=== PATIENT | female | born 1950 | race African-American/Black ===

== ENCOUNTER 2016-11-24 18:22 | Inpatient (IN) | payer MEDICARE ==
--- NOTE | ~2016-11-24 | HP ---
History And Physical [facility] [address] [facility]. [address] NAME: DONNA ZHOU : 50 STATUS : ADM IN [facility]#: [id number] AGE: 66 ADM/REG DATE : 11/24/16 MR#: [id number] REPORT SERV DATE: 11/24/16 DICTATED BY: BRYANT LOTT DATE: 11/24/16 REPORT STATUS : Draft TRANSCRIBED BY: MODL DATE: 11/24/16 DATE OF ADMISSION: 11/24/2016 CHIEF COMPLAINT: Vomiting blood. HISTORY OF PRESENT ILLNESS: This is a 66-year-old -[place] female, who presents to the emergency room at [facility] with the above-mentioned complaint. History is obtained from the patient, her son who is at bedside, and reviewing data available on the [employer] system as well. Mrs. Zhou is a 66-year-old lady, who was in her usual state of health until about two days ago when she started having vomiting. She says she vomited numerous times during the course of the day, on both days, and this was not bloody. She had severe nausea and vomiting and was unable to keep down anything including her blood pressure and other medications. Subsequently today, she saw dark blood in the vomitus as well. She immediately decided to come to the emergency room to be evaluated. In the emergency room, she continued to have bloody emesis, which was dark in color, but not dark coffee-grounds. She was otherwise in no discomfort. The ER provider had called Dr. Henry, who wanted the patient admitted in the IMCU under the Hospitalist Service. At the time of my evaluation, she denied any chest pain, palpitations, or orthopnea. She had no cough, hemoptysis, night sweats, or weight loss. She has not had any recent falls or loss of consciousness. No history of fevers or chills. She did have some epigastric tenderness, but that was after she has started vomiting. No history of hematochezia or hematuria. No other history of recent travel or exposures. PAST MEDICAL HISTORY: Significant for history of hypertension, ulcerative esophagitis, multiple myeloma, status post stem cell transplant in [address] Jason Westfall. She has chronic anemia, stage III to IV chronic kidney disease, history of systolic congestive heart failure, essential hypertension, chronic diarrhea. She has diabetes mellitus, type 2 and nonischemic cardiomyopathy as well. She also had right great toe amputation for osteomyelitis. SOCIAL HISTORY: She does not smoke, drink, or use recreational drugs. FAMILY HISTORY: Noncontributory. MEDICATIONS: Her medication at home were reviewed by me in the chart today and reordered by me. REVIEW OF SYSTEMS: As in history of present illness. All other systems were reviewed in detail and quite unremarkable. PHYSICAL EXAMINATION: History And Physical [address] [address] NAME: DONNA ZHOU : 50 STATUS : ADM IN PAT#: [id number] AGE: 66 ADM/REG DATE : 11/24/16 MR#: [id number] REPORT SERV DATE: 11/24/16 DICTATED BY: BRYANT LOTT DATE: 11/24/16 REPORT STATUS : Draft TRANSCRIBED BY: TARA DATE: 11/24/16 GENERAL: This is a pleasant 66-year-old, not in any acute distress. HEENT: Her head appears to be atraumatic, normocephalic. She is alert, awake, oriented to time, place, and person. Pupils are equal, reacting to light and accommodating. External ocular muscles are intact. Membranes are moist and pink. Sclerae are nonicteric. NECK: Supple with no jugular venous distention, lymphadenopathy, or thyromegaly. LUNGS: Clear to auscultation with no wheezes, rubs, or crackles. HEART: Heart sounds were regular with no murmurs, rubs, or gallops. ABDOMEN: Soft. There is no guarding or rigidity. There is no organomegaly. Bowel sounds are present. EXTREMITIES: No cyanosis, clubbing, or edema. NEUROLOGIC: Grossly intact. No focal sensory or motor deficits. She was able to move all four extremities. Higher functions appeared intact. VITAL SIGNS: Today showed normal temperature, heart rate of 103, respirations were 18 a minute, blood pressure was 221/129 upon arrival. Subsequently, her systolic pressures that come down to 166. Oxygen saturations were 100% breathing 2 L of oxygen via nasal cannula. LABORATORY DATA: Reviewed on the [employer] system showed a sodium of 142, potassium 3.8, chloride 101, CO2 of 27, BUN was 62 with a creatinine of 6.05 today. This had gone up from 10/23/2016, it was 5.31. Blood glucose was 212. AST, ALT, and alkaline phosphatase were within normal limits. CBC showed a white blood cell count of 11,500, hemoglobin was 12.2, hematocrit 36.3, and platelet count was 205,000. Her prothrombin time was 13.7 today with an INR of 1.1. There is no imaging done in the ER today. A 12-lead EKG done in the emergency room was reviewed and interpreted by me. There is sinus tachycardia with a rate of [address] elevations. There is evidence of left ventricular hypertrophy. IMPRESSION: 1. Acute gastrointestinal bleed. 2. Hypertensive urgency. 3. Hematemesis. 4. History of ulcerative esophagitis. 5. Acute on chronic kidney disease, stage III to IV. 6. History of multiple myeloma, status post stem cell transplantation in 2010. 7. Essential hypertension. 8. Diabetes mellitus, type 2 with hyperglycemia. PLAN: We will admit Mrs. Zhou to the Medical Intermediate Care Unit for close monitoring. We will follow hemoglobin and hematocrit levels, type, cross, and transfuse if needed. We will keep her n.p.o., Consult Dr. Henry to see her in the morning. Meanwhile, we will start her on Protonix infusion. We will follow chemistry and other electrolytes in the morning. Also check her CBC. For blood pressure control, we will use intravenous hydralazine at this point as she has had some good response. Her blood pressures have come down to 166 systolic. We will continue to monitor this and dose frequently and monitor her pressures. For blood sugar control, we will start her on NovoLog insulin given subcutaneously per sliding scale, stop her home regimen. She is going to be n.p.o. here. We will also place her on SCDs for DVT prophylaxis while she is here. Please see today's orders for all the details. I have discussed the above plans with the patient and her son. Questions were answered, and they are agreeable to the above recommendations. Hospitalist History And Physical [address] [place]. [address] NAME: DONNA ZHOU : 50 STATUS : ADM IN [facility]#: [id number] AGE: 66 ADM/REG DATE : 11/24/16 MR#: [id number] REPORT SERV DATE: 11/24/16 DICTATED BY: BRYANT LOTT DATE: 11/24/16 REPORT STATUS : Draft TRANSCRIBED BY: TARA DATE: 11/24/16 Service will be following her during her stay here. Further recommendations will follow after Dr. Argueta has had a chance to see her. /TARA Bryant Lott M.D. / [id number] CC: Cesar Perez M.D.
--- NOTE | ~2016-11-24 | OP ---
Record Of Operation [facility] [address] [place]. [address] NAME: DONNA LOREDO : 50 STATUS : ADM IN PAT#: [id number] AGE: 66 ADM/REG DATE : 11/24/16 MR#: [id number] REPORT SERV DATE: 11/30/16 DICTATED BY: CHONG GUERRIER DATE: 11/30/16 REPORT STATUS : Draft TRANSCRIBED BY: MODLin DATE: 11/30/16 DATE OF PROCEDURE: 11/30/2016 PREOPERATIVE DIAGNOSIS: End-stage renal disease. POSTOPERATIVE DIAGNOSIS: End-stage renal disease. PROCEDURE: Right internal jugular PermCath. SURGEON: Chong Guerrier M.D. ANESTHESIA: Local with sedation. COMPLICATIONS: None. BLOOD LOSS: Minimal. HISTORY: The patient is a 66-year-old female with end-stage renal disease in need of access for dialysis. It was felt that she would benefit from right IJ PermCath. This was discussed in detail with the patient. She expressed understanding and desired to proceed. DESCRIPTION OF PROCEDURE: The patient was taken to the operating room and placed in the supine position. She was given IV sedation without complication. Her neck and chest prepped in sterile fashion. Ultrasound was used to identify the internal jugular vein on the right. Patency was confirmed with compression. 1% lidocaine was infiltrated into the skin and subcutaneous tissues. Under ultrasound guidance, an 18-gauge needle placed into the internal jugular vein and wires passed through the SVC and IVC under fluoroscopic guidance. Needle was removed. A site for PermCath exit was chosen on the chest wall. An 11 blade was used to create incision here and a 24 curved PermCath tunneled from the exit site to the access site. Under fluoroscopic guidance, the peel-away sheath and dilator passed over the wire in the SVC. The wire and dilator were removed and the catheter was placed through the peel-away sheath. The sheath was peeled away without difficulty. Both ports aspirated and flushed without difficulty. They were locked with full strength heparin. The access site and exit site were closed with 4-0 Prolene suture. The PermCath was secured to the chest wall with 2-0 Ethilon suture and sterile dressing applied. The patient tolerated the procedure well. She was taken to the recovery room in stable condition. ZOILA/TARA Chong Guerrier M.D. / [id number] Record Of Operation [facility] [address] [place]. [address] NAME: DONNA LOREDO : 50 STATUS : ADM IN PAT#: [id number] AGE: 66 ADM/REG DATE : 11/24/16 MR#: [id number] REPORT SERV DATE: 11/30/16 DICTATED BY: CHONG GUERRIER DATE: 11/30/16 REPORT STATUS : Draft TRANSCRIBED BY: TARA DATE: 11/30/16 CC: Cesar Perez M.D.
--- NOTE | ~2016-11-24 | CN ---
Consultation Report [facility] [address] [facility] [place]. [address] NAME: ARIANA ZHOU : 50 STATUS : ADM IN PAT#: [id number] AGE: 66 ADM/REG DATE : 11/24/16 MR#: [id number] REPORT SERV DATE: 11/25/16 DICTATED BY: ОЛЬГА YU DATE: 11/25/16 REPORT STATUS : Draft TRANSCRIBED BY: MODL DATE: 11/25/16 GI CONSULTATION DATE OF CONSULTATION: 11/25/2016 REASON FOR CONSULTATION: Upper GI bleeding. HISTORY OF PRESENT ILLNESS: Ms. Ariana Zhou is a 66-year-old black female, who is a patient of mine, who comes in with about five to six episodes of hematemesis and then several through the night. She still has had some nausea. She denies any diarrhea, although she has a chronic history of diarrhea. She denies any fever, chills, but does complain of some upper abdominal discomfort in epigastric area. She reports vomiting started about two days ago. For twenty four hours, she had vomiting without any blood and then started vomiting of blood. She came to the hospital for evaluation for persistent symptoms. PAST MEDICAL HISTORY: Includes hypertension, esophagitis, multiple myeloma, status post stem cell transplant, anemia, chronic renal insufficiency, CHF, chronic diarrhea, diabetes. PAST SURGICAL HISTORY: Includes a right big toe amputation secondary to osteomyelitis. FAMILY HISTORY: Noncontributory. HOME MEDICATIONS: ProAir, Elavil, Norvasc, biotin, Combigan ophthalmic solution, Rocaltrol, Coreg, vitamin D, coenzyme Q, glucosamine, insulin, losartan, Nasonex, Singulair, Centrum, Zofran, prednisolone ophthalmic solution, Phenergan as needed, ranitidine, sodium bicarbonate, Hizentra every other Saturday, octreotide, magnesium. ALLERGIES: MORPHINE. REVIEW OF SYSTEMS: A 10-point review of systems otherwise negative. PAST ENDOSCOPIC HISTORY: Most recent EGD was 03/28/2015 showing some antral erythema. Otherwise, negative examination. HABITS: No smoking, drugs, or alcohol. PHYSICAL EXAMINATION: VITAL SIGNS: Temperature is 99.2, pulse is 82, respirations 19, blood pressure 197/84. HEENT: Normocephalic, atraumatic. Extraocular muscles are intact. NECK: Supple. No JVD. HEART: Regular without murmurs, thrills, or lifts. LUNGS: Clear to auscultation anteriorly without rales or rhonchi. ABDOMEN: Soft. There is some mild epigastric tenderness without rebound or guarding. Consultation Report [facility] [address] [place]. [address] NAME: ARIANA ZHOU : 50 STATUS : ADM IN PAT#: [id number] AGE: 66 ADM/REG DATE : 11/24/16 MR#: [id number] REPORT SERV DATE: 11/25/16 DICTATED BY: ОЛЬГА YU DATE: 11/25/16 REPORT STATUS : Draft TRANSCRIBED BY: MODL DATE: 11/25/16 EXTREMITIES: No cyanosis, clubbing, or edema. NEUROLOGIC: She is alert, oriented, and answers questions appropriately. PSYCHIATRIC: Normal mood and affect. LABORATORY DATA: Sodium 145, potassium 3.2, chloride 105, CO2 is 24, BUN is 66, creatinine 5.69, glucose is 166. LFTs were normal. INR 1.06. White count is 13.5, hemoglobin 10.8, hematocrit 32.5, platelet count 185. IMPRESSION: 1. Hematemesis. 2. Anemia with acute drop secondary to upper gastrointestinal bleeding. 3. Renal insufficiency. 4. Slight hypokalemia. RECOMMENDATION: 1. Monitor H and H. 2. Transfuse as needed. PLAN: Panendoscopy today. Risks, benefits of the procedure as well as possible complications of bleeding, infection, perforation, or allergic reaction to the medicine were described in detail. Questions were entertained and answered. The patient understands and agrees to proceed. We will ask anesthesia to sedate. SABINE/MARILUZL Ольга Yu M.D. / [id number] CC: Cesar Perez M.D.
--- NOTE | ~2016-11-24 | DS ---
Discharge Summary [facility] [address] [place]. [address] NAME: DONNA LOREDO : 50 STATUS : DIS IN PAT#: [id number] AGE: 66 ADM/REG DATE : 11/24/16 MR#: [id number] REPORT SERV DATE: 12/01/16 DICTATED BY: JAMIE SANTOS DATE: 12/01/16 REPORT STATUS : Draft TRANSCRIBED BY: MODL DATE: 12/01/16 ADMISSION DATE: 11/24/2016 DISCHARGE DATE: 12/01/2016 DISCHARGE DIAGNOSES: Include: 1. Esophagitis, candidiasis. 2. Hematemesis, GI bleed. 3. Chronic kidney disease, stage 5, progressed to end-stage renal disease. 4. Herpes zoster, acute. 5. Diabetes type 2, hemoglobin A1c is 6.2. 6. Chronic systolic heart failure. 7. Pyuria and urine culture with Klebsiella pneumoniae, however, full asymptomatic patient, so felt to be colonizer and not treated. DISCHARGE MEDICINES: Are as follows: 1. Elavil 25 mg at bedtime. 2. Norvasc 5 mg daily. 3. Combigan ophthalmic drops, one drop ophthalmic three times a day in left eye. 4. Calcitriol 0.5 mcg p.o. daily. 5. Coreg 25 mg twice a day. 6. Diflucan 100 mg p.o. daily, this is for 10 more days, prescription was written. 7. Lantus insulin 4 units at bedtime. 8. Pred Forte 1% ophthalmic solution, apply three times daily to the left eye. 9. Nasonex spray p.r.n. to nares. 10.Sodium bicarb 1300 mg twice a day. 11.Valtrex 1000 mg daily for three more days, prescription was written. 12.Singulair 10 mg daily. 13.Vitamin D3, 1000 units daily. 14.Zantac 300 mg daily. 15.Humalog insulin on a sliding scale with meals. 16.Hizentra 14 g subcu q.14 days. 17.Phenergan 25 mg q.4 hours p.r.n. for nausea. 18.Multivitamin tablet daily. 19.Magnesium 500 mg twice a day. 20.Coenzyme Q10, 100 mg daily. 21.Biotin hard nails daily. 22.Glucosamine 1000 mg daily. 23.Zofran p.r.n. 4 mg q.6 hours. 24.Albuterol inhaler q.4 hours p.r.n. for shortness of breath. HISTORY OF PRESENT ILLNESS: This is a 66-year-old female, who presented originally with vomiting blood to [facility] Emergency Room. Please see initial H and P of Dr. Bryant Rivera as the patient was admitted to the hospitalist service with urgent consult placed to GI services, Dr. Henry. Additional consult during this admission was to [facility] as well and Dr. Chong Guerrier, vascular surgeon for PermCath placement. Discharge Summary [facility] [address] [facility] [place]. [address] NAME: DONNA LOREDO : 50 STATUS : DIS IN PAT#: [id number] AGE: 66 ADM/REG DATE : 11/24/16 MR#: [id number] REPORT SERV DATE: 12/01/16 DICTATED BY: JAMIE SANTOS DATE: 12/01/16 REPORT STATUS : Draft TRANSCRIBED BY: TARA DATE: 12/01/16 PROCEDURES AND IMAGING: During this admission include an upper GI endoscopy that showed LA grade D esophagitis. Stomach was normal. Duodenum normal. HOSPITAL COURSE: The patient recovered well after the above described endoscopy. An H and H was followed serially and remained stable. She did have some worsening kidney function upon admission and with a significant history for chronic kidney disease, nephrology service was consulted and continued to follow the patient. She continued to do well. Her EGD procedure data came back showing candidiasis and she was started on Diflucan and also had been continued on her PPI therapy. It was determined with her worsening kidney function and increasing creatinine level that she had progressed to end-stage renal disease and plan was for establishment of vascular access and initiation of hemodialysis; however, the patient did develop an acute herpes zoster infection, which necessitated treatment with Valtrex. This delayed placement of the PermCath until 11/30/2016, but she tolerated the placement of this PermCath well and has had a hemodialysis treatment and is currently set up for outpatient hemodialysis with hopes in the future to begin peritoneal dialysis at home. The patient was felt safe for discharge home on 12/01/2016, with the above medication regimen, to begin outpatient hemodialysis, and follow up with her primary care and with [facility] and dialysis center. Questions were answered at bedside. She is in agreement with this plan going forward. Please note greater 30 minutes was spent on this discharge for medication teaching, followup planning, and further disposition. CSC/MODL Jamie Santos NP / [id number] CC: MD Leslye Mccoy II, M.D.
--- NOTE | ~2016-11-24 | EGD ---
EGD REPORT [facility] [address] [place] [address] NAME: ARIANA ZHOU : 50 STATUS : ADM IN PAT#: [id number] AGE: 66 ADM/REG DATE : 11/24/16 MR#: [id number] REPORT SERV DATE: 11/25/16 DICTATED BY: ОЛЬГА YU DATE: 11/25/16 REPORT STATUS : Draft [facility]ANSCRIBED BY: [facility] DATE: 11/25/16 Endoscopy Center Patient Name: Ariana Zhou Date of : 1950 Attending MD: ОЛЬГА YU MD Procedure Date No Time: 11/25/2016 Procedure: Upper GI endoscopy Indications: Hematemesis Medicines: Monitored Anesthesia Care Complications: No immediate complications. Procedure: Pre-Anesthesia Assessment: - ASA Grade Assessment: III - A patient with severe systemic disease. After obtaining informed consent, the endoscope was passed under direct vision. Throughout the procedure, the patient's blood pressure, pulse, and oxygen saturations were monitored continuously. The GIF [id number] was introduced through the mouth, and advanced to the second part of duodenum. The upper GI endoscopy was accomplished without difficulty. The patient tolerated the procedure well. Findings: LA Grade D (one or more mucosal breaks involving at least 75% of esophageal circumference) esophagitis was found in the middle third of the esophagus. Biopsies were taken with a cold forceps for histology. LA Grade D (one or more mucosal breaks involving at least 75% of esophageal circumference) esophagitis was found in the lower third of the esophagus. Biopsies were taken with a cold forceps for histology. The entire examined stomach was normal. The cardia and gastric fundus were normal on retroflexion. The first part of the duodenum and 2nd part of the duodenum were normal. Impression: - LA Grade D esophagitis. Biopsied. - LA Grade D esophagitis. Biopsied. - Normal stomach. - Normal first part of the duodenum and 2nd part of the duodenum. Recommendation: - Return patient to [facility] for ongoing care. - Full liquid diet. - Follow an antireflux regimen. - Give Protonix (pantoprazole): 8 mg/hr IV by continuous infusion for 1 day. - Use Protonix (pantoprazole) 40 mg PO BID. EGD REPORT [address] [address] NAME: ARIANA ZHOU : 50 STATUS : ADM IN [facility]#: [id number] AGE: 66 ADM/REG DATE : 11/24/16 MR#: [id number] REPORT SERV DATE: 11/25/16 DICTATED BY: ОЛЬГА YU DATE: 11/25/16 REPORT STATUS : Draft TRANSCRIBED BY: [employer] DATE: 11/25/16 - Use sucralfate suspension 1 gram PO QID. - Await pathology results. Procedure Code(s): --- Professional --- 19053, Esophagogastroduodenoscopy, flexible, transoral; with biopsy, single or multiple Diagnosis Code(s): --- Professional --- K20.9, Esophagitis, unspecified K92.0, Hematemesis CPT copyright 2013 [employer]. All rights reserved. The codes documented in this report are preliminary and upon associate store director review may be revised to meet current compliance requirements. ОЛЬГА YU MD 11/25/2016 9:10 AM This report has been signed electronically. Number of Addenda: 0 Note Initiated On: 11/25/2016 8:45 AM Scope Withdrawal Time 0 hours 0 minutes 0 seconds [id number] [place] [id number]
--- NOTE | ~2016-11-24 | CN ---
Consultation Report [facility] [address] [place]. [address] NAME: DONNA ZHOU : 50 STATUS : ADM IN PAT#: [id number] AGE: 66 ADM/REG DATE : 11/24/16 MR#: [id number] REPORT SERV DATE: 11/25/16 DICTATED BY: DATE: REPORT STATUS : Draft TRANSCRIBED BY: MODLin DATE: 11/25/16 DATE OF CONSULTATION: REASON FOR CONSULTATION: Acute kidney injury on CKD. HISTORY OF PRESENT ILLNESS: Ms. Zhou is a 66-year-old black female with advanced CKD, followed in the office by Dr. Dominguez and planning has been for PD once. Renal replacement therapy was necessary. She presented to the hospital with vomiting since Saturday and started having hematemesis. Denied any nausea or vomiting prior to her illness. No weight loss. No other uremic symptoms. She is experiencing no shortness of breath or chest pain. No problems with urination. Creatinine on arrival was elevated at 6 and today it is down to 5.69. She has a Campa catheter. Good urine output. PAST MEDICAL HISTORY: CKD stage 4, history of multiple myeloma, status post stem cell transplant in 2010, type 2 diabetes, hypertension, esophagitis, ischemic cardiomyopathy with systolic heart failure, and right great toe amputation pain secondary to osteomyelitis. FAMILY MEDICAL HISTORY: No end-stage renal disease. SOCIAL HISTORY: Lives with son. No tobacco, alcohol, or illicit drug use. ALLERGIES: MORPHINE. HOME MEDICATIONS: Albuterol, Elavil, Norvasc, biotin, Combigan, Rocaltrol, Coreg, coenzyme Q10, Lantus, Humalog, Cozaar, Nasonex, Singulair, Centrum, Zofran, Phenergan, Zantac, sodium bicarbonate, Hizentra, octreotide, and magnesium. REVIEW OF SYSTEMS: A 12-point review of systems, negative with the exception of that in HPI. PHYSICAL EXAMINATION: VITAL SIGNS: Temp 99.4, blood pressure 178/83, pulse 97, respiratory rate 15, and O2 saturation is 97%. GENERAL: This is a pleasant, cooperative, white female, ill appearing. HEENT: Normocephalic, atraumatic. Conjunctivae clear. Sclerae anicteric. Pupils are equal and round. Oral mucosa is moist. NECK: Supple. Carotids are brisk. Neck veins flat. No lymphadenopathy. LUNGS: Respirations even and unlabored. Breath sounds clear to auscultation. HEART: Rate is regular. No murmur, rub, or gallop. ABDOMEN: Soft with some mild diffuse tenderness. Bowel sounds active. No masses. No hepatosplenomegaly. No bruits. No CVA tenderness. BACK: Within normal limits. EXTREMITIES: No edema, cyanosis, or clubbing. SKIN: Warm, dry, and intact. No unusual rash or skin lesions. NEUROLOGIC: No focal deficits. Mood and affect, pleasant and appropriate. Consultation Report [facility] [id number] [place]. [address] NAME: DONNA ZHOU : 50 STATUS : ADM IN [facility]#: [id number] AGE: 66 ADM/REG DATE : 11/24/16 MR#: [id number] REPORT SERV DATE: 11/25/16 DICTATED BY: DATE: REPORT STATUS : Draft TRANSCRIBED BY: MODL DATE: 11/25/16 PERTINENT LABORATORIES AND X-RAYS: H and H is 10 and 31. Sodium 145, potassium 3.2, chloride 105, CO2 of 24, BUN 66, creatinine 5.6, and lipase 204. She had an EGD today and found esophagitis. WBCs 13.5, H and H 10 and 32, and platelets 185,000. IMPRESSION: 1. Acute kidney injury. 2. Chronic kidney disease stage 4. 3. Nausea and vomiting. 4. Esophagitis. 5. Hypokalemia. 6. History of multiple myeloma. 7. Chronic diarrhea. PLAN/SUGGESTIONS: The patient with advanced CKD at baseline. I do not know what it is, but I suspect it is around 4-5 by looking in records here. I will get the records from the office tomorrow. Plan is for PD when the patient needs renal replacement therapy. We will see how she does with treatment of her esophagitis. If she continues to have nausea or vomiting, this could be a sign of uremia. We will hydrate, get urine studies, hold Cozaar and hope to avoid renal replacement therapy at this time. We will follow along with you. Thank you for the consultation. LULA/TARA TIERA Meyers / [phone]
[~2016-11-24 18:22] MED LIST: ALPHAGAN P0.1 % OPH; ALVESCO160 MCG INH; AMIT25 PO; ASAB PO; ASABAYER PO; BACTRIM PO; BIOTIN10 MG OR; CALGLUCTAB PO; CARASPUDL PO; CENTRUM TAB1 TAB PO; CO Q-10100 MG PO; COQ10100 MG OR; COREG12 PO; COREG25 PO; COREG3 PO; COREG6 PO; COZAAR100 MG PO; DEX4 PO; DIOV160 PO; FOLIC PO; GLUCCHONDR PO; GLUCOSAMINEPO PO; GLUCOV5 PO; GLUCPH PO; HARD NAILS PO; HIZENTRA SC; HUMALOG SC; HYDROCHLOROT25 MG PO; HYZAAR 100/25 T1 TAB PO; I20 PO; IVIG; KLOR-CON 1010 MEQ PO; KLOR-CON M2020 MEQ PO; L40 PO; LANTUS SC; LOM PO; MAGONATE PO; MAGOX4 PO; MIRALAXPKT PO; MOBIC7.5 PO; MTX2.5 PO; MULTIPLE VIT PO; MULTIVITAMI1 PO; NASONEX NAS; NEUR300 PO; NORV10 PO; NORV5 PO; OS500+D PO; PR25 PO; PRAVAC PO; PRILO PO; PROAIR HFA INH; PROTONIX PO; REVLIMID15 MG OR; REVLIMID5 MG OR; ROCALTROL 0.0.25 MCG PO; SEPTRA; SEROQUEL50 MG PO; SILVADENE1 %; SINGULAIR1 PO; SODBICAR10 PO; TUMSROLL PO; ULTRAM50 PO; VALTREX5 PO; VELCADE; VICODINTAB PO; VITAMIN D31000 UNIT PO; VITC500 PO; X5 PO; ZOFRAN8 PO; ZOL50 PO; ZOVIRAX400 MG PO; [UNRECOGNIZED DRUG - CODE]; [UNRECOGNIZED DRUG - CODE] IV; [UNRECOGNIZED DRUG - CODE] SC
[2016-11-24 19:17] LABS: BASOPHILS 0.1 %; BASOPHILS ABSOLUTE 0.01 10/3/uL (0.0-0.16); EOSINOPHILS 0 %; HEMATOCRIT 36.3 % (36.0-48.0); HEMOGLOBIN 12.2 g/dL (12.0-16.0); IMMATURE GRANULOCYTES 0.2 %; IMMATURE GRANULOCYTES ABSOLUTE 0.02 10/3/uL (0.0-0.11); LYMPHOCYTES 17.7 %; LYMPHOCYTES ABSOLUTE 2.03 10/3/uL (0.67-4.30); MEAN CORPUS HGB CONC 33.6 g/dL (32.0-36.0); MEAN CORPUSCULAR HEMOGLOB 30.7 pg (26.0-34.0); MONOCYTES 3.7 %; MONOCYTES ABSOLUTE 0.43 10/3/uL (0.21-1.20); NEUTROPHILS 78.3 %; NEUTROPHILS ABSOLUTE 9.01 10/3/uL (2.02-8.40); PLATELET COUNT 205 10/3/uL (150-400); RBC DISTRIBUTION WIDTH 14.2 % (12.0-16.0); RED CELL COUNT 3.98 10/6/uL (4.0-5.6)
[2016-11-24 19:18] LABS: ER CBC TAT 0 Hrs 05 Mins; MANUAL DIFF NO %; MEAN CORPUSCULAR VOLUME 91.2 fL (80-100); WHITE BLOOD CELLS 11.5 10/3/uL (4.5-10.5)
[2016-11-24 19:24] LABS: INTERNATIONAL NORMAL RATI 1.1 UNITS (-); PARTIAL THROMBO TIME 26.8 SEC (22.5-37.2); PROTIME (NOT ORD) 13.7 SEC (12.0-14.5)
[2016-11-24 19:33] LABS: ALBUMIN 4.6 G/DL (3.5-5.0); ALKALINE PHOSPHATASE 85 U/L (45-117); CO2 (CARBON DIOXIDE) 27 MMOL/L (24-34); POTASSIUM, SERUM 3.8 MMOL/L (3.5-5.3); SGOT(AST) 34 U/L (5-40); SGPT(ALT) 31 U/L (5-65); SODIUM, SERUM 142 MMOL/L (135-148); TOTAL BILIRUBIN 0.4 MG/DL (0-1.2); TOTAL PROTEIN 9.2 G/DL (6.0-8.5)
[2016-11-24 19:45] LABS: BUN (BLOOD UREA NITROGEN) 62 MG/DL (6-23); CALCIUM, SERUM 10.3 MG/DL (8.5-10.4); CHLORIDE, SERUM 101 MMOL/L (96-112); CREATININE 6.05 MG/DL (0.55-1.02); GFR AFRICAN AMERICAN 8 ML/MIN (>=60); GFR NON AFRICAN AMERICAN 7 ML/MIN (>=60); GLOBULIN 4.6 G/DL (2.5-4.1); GLUCOSE, SERUM 212 MG/DL (60-99)
[2016-11-24] MEDS ORDERED: COREG25 PO (20:03)
[2016-11-24] MEDS ORDERED: NORV5 PO (20:03)
[2016-11-24] MEDS ORDERED: COZAAR100 MG PO (20:03)
[2016-11-24] MEDS ORDERED: SINGULAIR1 PO (20:04)
[2016-11-24] MEDS ORDERED: SODBICAR10 PO (20:04)
[2016-11-24] MEDS ORDERED: VITAMIN D1000 UNI1 PO (20:04)
[2016-11-24] MEDS ORDERED: RANITIDINE300 MG PO (20:04)
[2016-11-24] MEDS ORDERED: AMIT25 PO (20:04)
[2016-11-24] MEDS ORDERED: COMBIGAN0.2 MG/0.5 OPH (20:05)
[2016-11-24] MEDS ORDERED: PREDFORTE OPH (20:05)
[2016-11-24] MEDS ORDERED: P10 PO (20:06)
[2016-11-24] MEDS ORDERED: HUMALOG SC (20:06)
[2016-11-24] MEDS ORDERED: LANTUS SC (20:06)
[2016-11-24] MEDS ORDERED: ROCALTROL0.5 MCG PO (20:06)
[2016-11-24] MEDS ORDERED: HIZENTRA SC (20:07)
[2016-11-24] MEDS ORDERED: NASONEX NAS (20:08)
[2016-11-24] MEDS ORDERED: PR25 PO (20:08)
[2016-11-24] MEDS ORDERED: CENTRUM PO (20:21)
[2016-11-24] MEDS ORDERED: OCTREOTIDE SC (20:21)
[2016-11-24] MEDS ORDERED: HARD NAILS PO (20:22)
[2016-11-24] MEDS ORDERED: MAGNESIUM PO (20:22)
[2016-11-24] MEDS ORDERED: GLUCOSAMINEPO PO (20:22)
[2016-11-24] MEDS ORDERED: ZOFRAN4 PO (20:22)
[2016-11-24] MEDS ORDERED: CO Q-10100 MG PO (20:22)
[2016-11-24] MEDS ORDERED: PROAIR HFA INH (20:29)
[2016-11-25 04:47] LABS: BASOPHILS 0 %; EOSINOPHILS 0 %; HEMOGLOBIN 10.8 g/dL (12.0-16.0); IMMATURE GRANULOCYTES 0.1 %; IMMATURE GRANULOCYTES ABSOLUTE 0.02 10/3/uL (0.0-0.11); LYMPHOCYTES 16.1 %; LYMPHOCYTES ABSOLUTE 2.16 10/3/uL (0.67-4.30); MEAN CORPUS HGB CONC 33.2 g/dL (32.0-36.0); MEAN CORPUSCULAR HEMOGLOB 30.5 pg (26.0-34.0); MEAN CORPUSCULAR VOLUME 91.8 fL (80-100); MEAN PLATELET VOLUME 10.7 fL (9.2-13.0); MONOCYTES 6.2 %; MONOCYTES ABSOLUTE 0.84 10/3/uL (0.21-1.20); NEUTROPHILS 77.6 %; NEUTROPHILS ABSOLUTE 10.43 10/3/uL (2.02-8.40); PLATELET COUNT 185 10/3/uL (150-400); RBC DISTRIBUTION WIDTH 14.2 % (12.0-16.0); RED CELL COUNT 3.54 10/6/uL (4.0-5.6); WHITE BLOOD CELLS 13.5 10/3/uL (4.5-10.5)
[2016-11-25 04:48] LABS: HEMATOCRIT 32.5 % (36.0-48.0); MANUAL DIFF NO %
[2016-11-25 04:58] LABS: CHLORIDE, SERUM 105 MMOL/L (96-112); CO2 (CARBON DIOXIDE) 24 MMOL/L (24-34); CREATININE 5.69 MG/DL (0.55-1.02); GFR AFRICAN AMERICAN 8 ML/MIN (>=60); GFR NON AFRICAN AMERICAN 7 ML/MIN (>=60); PHOSPHORUS, SERUM 4.5 MG/DL (2.5-4.5); POTASSIUM, SERUM 3.2 MMOL/L (3.5-5.3); SODIUM, SERUM 145 MMOL/L (135-148)
[2016-11-25 05:00] LABS: BUN (BLOOD UREA NITROGEN) 66 MG/DL (6-23); CALCIUM, SERUM 9.2 MG/DL (8.5-10.4); GLUCOSE, SERUM 166 MG/DL (60-99)
[2016-11-25 10:21] LABS: HEMATOCRIT 31.6 % (36.0-48.0); HEMOGLOBIN 10.7 g/dL (12.0-16.0)
[2016-11-25 14:09] LABS: HEMATOCRIT 32.7 % (36.0-48.0); HEMOGLOBIN 10.8 g/dL (12.0-16.0)
[2016-11-25 15:01] LABS: ASCORBIC ACID (UR NOT ORDER) NEG (NEG); BILIRUBIN, URINE NEGATIVE (NEG); KETONE, URINE TRACE MG/DL (NEG); LEUKOCYTE ESTERASE(NOT OR LARGE (NEG); WBC (NOT ORDERED) (RFLEX) > 182 (0-5)
[2016-11-25 22:27] LABS: HEMATOCRIT 30.6 % (36.0-48.0); HEMOGLOBIN 10.1 g/dL (12.0-16.0)
[2016-11-26 06:14] LABS: CALCIUM, SERUM 8.6 MG/DL (8.5-10.4); CHLORIDE, SERUM 105 MMOL/L (96-112); CO2 (CARBON DIOXIDE) 23 MMOL/L (24-34); CREATININE 5.94 MG/DL (0.55-1.02); GFR AFRICAN AMERICAN 8 ML/MIN (>=60); GFR NON AFRICAN AMERICAN 7 ML/MIN (>=60); GLUCOSE, SERUM 133 MG/DL (60-99); SGOT(AST) 21 U/L (5-40); SGPT(ALT) 23 U/L (5-65); SODIUM, SERUM 143 MMOL/L (135-148); TOTAL BILIRUBIN 0.4 MG/DL (0-1.2)
[2016-11-26 06:15] LABS: ALBUMIN 3.5 G/DL (3.5-5.0); ALKALINE PHOSPHATASE 65 U/L (45-117); BUN (BLOOD UREA NITROGEN) 71 MG/DL (6-23); GLOBULIN 3.4 G/DL (2.5-4.1); PHOSPHORUS, SERUM 3.5 MG/DL (2.5-4.5); POTASSIUM, SERUM 2.8 MMOL/L (3.5-5.3); TOTAL PROTEIN 6.9 G/DL (6.0-8.5)
[2016-11-26 06:50] LABS: BASOPHILS 0 %; EOSINOPHILS 0.1 %; EOSINOPHILS ABSOLUTE 0.01 10/3/uL (0.0-0.53); HEMATOCRIT 31.3 % (36.0-48.0); HEMOGLOBIN 10.3 g/dL (12.0-16.0); IMMATURE GRANULOCYTES 0.3 %; IMMATURE GRANULOCYTES ABSOLUTE 0.04 10/3/uL (0.0-0.11); LYMPHOCYTES 18.4 %; LYMPHOCYTES ABSOLUTE 2.21 10/3/uL (0.67-4.30); MEAN CORPUS HGB CONC 32.9 g/dL (32.0-36.0); MEAN CORPUSCULAR HEMOGLOB 31.2 pg (26.0-34.0); MEAN CORPUSCULAR VOLUME 94.8 fL (80-100); MEAN PLATELET VOLUME 10.5 fL (9.2-13.0); MONOCYTES 8.8 %; MONOCYTES ABSOLUTE 1.06 10/3/uL (0.21-1.20); NEUTROPHILS 72.4 %; NEUTROPHILS ABSOLUTE 8.67 10/3/uL (2.02-8.40); PLATELET COUNT 151 10/3/uL (150-400); RBC DISTRIBUTION WIDTH 14.3 % (12.0-16.0)
[2016-11-26 06:51] LABS: MANUAL DIFF NO %
[2016-11-26 11:32] LABS: HEMATOCRIT 29.4 % (36.0-48.0); HEMOGLOBIN 9.7 g/dL (12.0-16.0)
[2016-11-26 16:15] LABS: ALBUMIN 3.4 G/DL (3.5-5.0); BUN (BLOOD UREA NITROGEN) 71 MG/DL (6-23); CALCIUM, SERUM 8.2 MG/DL (8.5-10.4); CHLORIDE, SERUM 107 MMOL/L (96-112); CO2 (CARBON DIOXIDE) 23 MMOL/L (24-34); CREATININE 6.04 MG/DL (0.55-1.02); GFR AFRICAN AMERICAN 8 ML/MIN (>=60); GFR NON AFRICAN AMERICAN 7 ML/MIN (>=60); GLUCOSE, SERUM 151 MG/DL (60-99); PHOSPHORUS, SERUM 3.3 MG/DL (2.5-4.5); POTASSIUM, SERUM 3.4 MMOL/L (3.5-5.3); SODIUM, SERUM 142 MMOL/L (135-148)
[2016-11-26 16:28] LABS: HEMATOCRIT 29.1 % (36.0-48.0); HEMOGLOBIN 9.6 g/dL (12.0-16.0)
[2016-11-27 07:23] LABS: BASOPHILS 0.3 %; BASOPHILS ABSOLUTE 0.02 10/3/uL (0.0-0.16); EOSINOPHILS 1.3 %; EOSINOPHILS ABSOLUTE 0.09 10/3/uL (0.0-0.53); HEMATOCRIT 27.4 % (36.0-48.0); HEMOGLOBIN 8.8 g/dL (12.0-16.0); IMMATURE GRANULOCYTES 0.3 %; IMMATURE GRANULOCYTES ABSOLUTE 0.02 10/3/uL (0.0-0.11); LYMPHOCYTES 33.4 %; LYMPHOCYTES ABSOLUTE 2.33 10/3/uL (0.67-4.30); MANUAL DIFF NO %; MEAN CORPUS HGB CONC 32.1 g/dL (32.0-36.0); MEAN CORPUSCULAR HEMOGLOB 30.9 pg (26.0-34.0); MEAN CORPUSCULAR VOLUME 96.1 fL (80-100); MEAN PLATELET VOLUME 10.4 fL (9.2-13.0); MONOCYTES 10.3 %; MONOCYTES ABSOLUTE 0.72 10/3/uL (0.21-1.20); NEUTROPHILS 54.4 %; NEUTROPHILS ABSOLUTE 3.79 10/3/uL (2.02-8.40); PLATELET COUNT 149 10/3/uL (150-400); RBC DISTRIBUTION WIDTH 14.1 % (12.0-16.0); RED CELL COUNT 2.85 10/6/uL (4.0-5.6)
[2016-11-27 07:50] LABS: BUN (BLOOD UREA NITROGEN) 72 MG/DL (6-23); CALCIUM, SERUM 7.9 MG/DL (8.5-10.4); CHLORIDE, SERUM 108 MMOL/L (96-112); CO2 (CARBON DIOXIDE) 22 MMOL/L (24-34); CREATININE 6.42 MG/DL (0.55-1.02); GFR AFRICAN AMERICAN 7 ML/MIN (>=60); GFR NON AFRICAN AMERICAN 6 ML/MIN (>=60); GLUCOSE, SERUM 85 MG/DL (60-99); POTASSIUM, SERUM 3.3 MMOL/L (3.5-5.3); SODIUM, SERUM 143 MMOL/L (135-148)
[2016-11-27 22:54] LABS: ASCORBIC ACID (UR NOT ORDER) NEG (NEG); BILIRUBIN, URINE NEGATIVE (NEG); KETONE, URINE NEGATIVE (NEG); LEUKOCYTE ESTERASE(NOT OR LARGE (NEG); WBC (NOT ORDERED) (RFLEX) 122 (0-5)
[2016-11-28 08:53] LABS: HEPATITIS C ANTIBODY NON-REACTIVE (NON-REACT)
[2016-11-28 08:54] LABS: HEPATITIS B CORE AB IGM NON-REACTIVE (NON-REAC)
[2016-11-28 08:55] LABS: HIV COMBO NON-REACTIVE (NON REAC)
[2016-11-28 08:56] LABS: HEP A ANTIBODY IGM NON-REACTIVE (NON-REACT)
[2016-11-28 09:02] LABS: HEPATITIS B SURFACE ANTIGEN NON-REACTIVE (NON-REACT)
[2016-11-29 06:08] LABS: BASOPHILS 0.2 %; BASOPHILS ABSOLUTE 0.01 10/3/uL (0.0-0.16); EOSINOPHILS 2.3 %; EOSINOPHILS ABSOLUTE 0.13 10/3/uL (0.0-0.53); HEMATOCRIT 26.1 % (36.0-48.0); HEMOGLOBIN 8.4 g/dL (12.0-16.0); IMMATURE GRANULOCYTES 0.2 %; IMMATURE GRANULOCYTES ABSOLUTE 0.01 10/3/uL (0.0-0.11); LYMPHOCYTES 32.3 %; LYMPHOCYTES ABSOLUTE 1.83 10/3/uL (0.67-4.30); MEAN CORPUS HGB CONC 32.2 g/dL (32.0-36.0); MEAN CORPUSCULAR HEMOGLOB 30.1 pg (26.0-34.0); MEAN CORPUSCULAR VOLUME 93.5 fL (80-100); MEAN PLATELET VOLUME 10.3 fL (9.2-13.0); MONOCYTES 13.1 %; MONOCYTES ABSOLUTE 0.74 10/3/uL (0.21-1.20); NEUTROPHILS 51.9 %; NEUTROPHILS ABSOLUTE 2.94 10/3/uL (2.02-8.40); PLATELET COUNT 127 10/3/uL (150-400); RBC DISTRIBUTION WIDTH 13.8 % (12.0-16.0); RED CELL COUNT 2.79 10/6/uL (4.0-5.6); WHITE BLOOD CELLS 5.7 10/3/uL (4.5-10.5)
[2016-11-29 06:14] LABS: INTERNATIONAL NORMAL RATI 1.1 UNITS (-); PARTIAL THROMBO TIME 37.6 SEC (22.5-37.2); PROTIME (NOT ORD) 14.1 SEC (12.0-14.5)
[2016-11-29 06:20] LABS: MANUAL DIFF NO %
[2016-11-29 06:28] LABS: ALBUMIN 2.9 G/DL (3.5-5.0); BUN (BLOOD UREA NITROGEN) 64 MG/DL (6-23); CALCIUM, SERUM 8.1 MG/DL (8.5-10.4); CHLORIDE, SERUM 105 MMOL/L (96-112); CO2 (CARBON DIOXIDE) 23 MMOL/L (24-34); CREATININE 6.47 MG/DL (0.55-1.02); GFR AFRICAN AMERICAN 7 ML/MIN (>=60); GFR NON AFRICAN AMERICAN 6 ML/MIN (>=60); GLUCOSE, SERUM 110 MG/DL (60-99); POTASSIUM, SERUM 3.6 MMOL/L (3.5-5.3); SODIUM, SERUM 138 MMOL/L (135-148)
[2016-12-01] MEDS ORDERED: FLUCON1 PO (12:34)
[2016-12-01] MEDS ORDERED: PROTONIX PO (12:35)
[2016-12-01] MEDS ORDERED: PCET PO (12:35)
[2016-12-01] MEDS ORDERED: VALTREX5 PO (12:36)
[2017-01-21] MEDS ORDERED: IMMUNE GLOBULIN (14:25)
== END 2016-12-01 15:50 | disposition home or self-care (01) | DRG 380 ==
LOC: ER 18:22 → IMCU 21:55 → 6NO 11-26 13:03
PROVIDERS: Emergency Medicine; Internal Medicine; Internal Medicine Gastroenterology; Internal Medicine Nephrology; Internal Medicine Pulmonary Disease; Nurse Practitioner
PROC: 0DB38ZX Excision of Lower Esophagus, Via Natural or Artificial Opening Endoscopic, Diagnostic (ICD-10-PCS; 2016-11-25)
PROC: 0DB28ZX Excision of Middle Esophagus, Via Natural or Artificial Opening Endoscopic, Diagnostic (ICD-10-PCS; principal; 2016-11-25 08:58)
PROC: 05HM33Z Insertion of Infusion Device into Right Internal Jugular Vein, Percutaneous Approach (ICD-10-PCS; 2016-11-30)
PROC: B5131ZA Fluoroscopy of Right Jugular Veins using Low Osmolar Contrast, Guidance (ICD-10-PCS; 2016-11-30)
PROC: 5A1D60Z (ICD-10-PCS; 2016-11-30)
DX: K22.11 Ulcer of esophagus with bleeding (principal); N18.6 End stage renal disease; I13.2 Hypertensive heart and chronic kidney disease with heart failure and with stage 5 chronic kidney disease, or end stage renal disease; N17.9 Acute kidney failure, unspecified; B37.81 Candidal esophagitis; I42.9 Cardiomyopathy, unspecified; E11.22 Type 2 diabetes mellitus with diabetic chronic kidney disease; D62 Acute posthemorrhagic anemia; I50.22 Chronic systolic (congestive) heart failure; N39.0 Urinary tract infection, site not specified; E11.65 Type 2 diabetes mellitus with hyperglycemia; I16.0 Hypertensive urgency; B02.9 Zoster without complications; Z99.2 Dependence on renal dialysis; Z89.411 Acquired absence of right great toe; Z88.5 Allergy status to narcotic agent
CPT/HCPCS: 36415; 36558; 77001; 80048; 80053; 80069; 80074; 81001; 82150; 82570; 82962; 83690; 83735; 84100; 84132; 84300; 85014; 85018; 85025; 85610; 85730; 86850; 86900; 86901; 87077; 87086; 87186; 87389; 87493; 87493-59; 87641; 88305; 88312; 93005; 96365; 96375; 99285; A9270-GY; C1750; C9113; G0257; J0360; J0690; J2250; J2405; J2550; J3010

== ENCOUNTER 2017-01-24 05:44 | Day surgery (SDC) | payer MEDICARE ==
--- NOTE | ~2017-01-24 | OP ---
Record Of Operation [facility] [address] [place]. [address] NAME: DONNA LOREDO : 50 STATUS : REG [facility] [place] PAT#: [id number] AGE: 66 ADM/REG DATE : 01/24/17 MR#: [id number] REPORT SERV DATE: 01/24/17 DICTATED BY: LINDA CARLOS II DATE: 01/24/17 REPORT STATUS : Draft TRANSCRIBED BY: MODL DATE: 01/24/17 DATE OF PROCEDURE: 01/24/2017 PREOPERATIVE DIAGNOSIS: Chronic renal failure. POSTOPERATIVE DIAGNOSIS: Chronic renal failure. PROCEDURE: Creation of left upper extremity brachiocephalic arteriovenous fistula. ANESTHESIA: Local with MAC. ESTIMATED BLOOD LOSS: 25 mL. MOP MACHINE OPERATOR: Aletha. DESCRIPTION OF PROCEDURE: The patient was taken to the operating room and placed in supine on table. Left arm was prepped and draped in a sterile fashion. We mapped out the left arm. The cephalic vein below the elbow was diffusely small. Antecubital fossa measured 4 mm. The brachial artery measured 4 mm as well. We then made an incision over the brachial artery and cephalic vein. We mobilized the vein proximal and distally. We ligated it distally, and then spatulated the free end and flushed with heparin. We then exposed the brachial artery and placed vessel loops. A longitudinal arteriotomy was performed and we performed an end-to-side anastomosis between the brachial artery and the cephalic vein using running 6-0 Prolene. Prior to complete closure, we flushed and removed the clamps. The ultrasound demonstrates good flow within the fistula. There was an excellent thrill. We thoroughly irrigated and closed with interrupted 3-0 Vicryl and closed the skin with Monocryl. At the end of procedure, the patient was stable. She had tolerated it well. RIMA/TARA Linda Carlos II, M.D. / [id number] CC: Cesar Lowe II, M.D.
[~2017-01-24 05:44] MED LIST changes: +CENTRUM PO; +COMBIGAN0.2 MG/0.5 OPH; +FLUCON1 PO; +IMMUNE GLOBULIN; +MAGNESIUM PO; +OCTREOTIDE SC; +P10 PO; +PCET PO; +PREDFORTE OPH; +RANITIDINE300 MG PO; +ROCALTROL0.5 MCG PO; +VITAMIN D1000 UNI1 PO; +ZOFRAN4 PO
[2017-01-24 06:43] LABS: HEMATOCRIT 28.5 % (36.0-48.0); HEMOGLOBIN 9.1 g/dL (12.0-16.0)
[2017-01-24 06:52] LABS: CHLORIDE, SERUM 103 MMOL/L (96-112); SODIUM, SERUM 141 MMOL/L (135-148)
[2017-01-24 06:56] LABS: BUN (BLOOD UREA NITROGEN) 35 MG/DL (6-23); CALCIUM, SERUM 9.8 MG/DL (8.5-10.4); CO2 (CARBON DIOXIDE) 30 MMOL/L (24-34); CREATININE 5.34 MG/DL (0.55-1.02); GFR AFRICAN AMERICAN 9 ML/MIN (>=60); GFR NON AFRICAN AMERICAN 8 ML/MIN (>=60); GLUCOSE, SERUM 190 MG/DL (60-99); POTASSIUM, SERUM 5.1 MMOL/L (3.5-5.3)
== END 2017-01-24 23:59 | disposition home or self-care (01) ==
LOC: SDC 05:44
PROVIDERS: Surgery
PROC: 03180AD Bypass Left Brachial Artery to Upper Arm Vein with Autologous Arterial Tissue, Open Approach (ICD-10-PCS; principal; 2017-01-24 08:45)
DX: I13.2 Hypertensive heart and chronic kidney disease with heart failure and with stage 5 chronic kidney disease, or end stage renal disease (principal); N18.6 End stage renal disease; I50.9 Heart failure, unspecified; E11.22 Type 2 diabetes mellitus with diabetic chronic kidney disease; K20.9 Esophagitis, unspecified; C90.00 Multiple myeloma not having achieved remission; E11.40 Type 2 diabetes mellitus with diabetic neuropathy, unspecified; Z90.710 Acquired absence of both cervix and uterus; Z89.411 Acquired absence of right great toe; Z96.649 Presence of unspecified artificial hip joint; Z88.5 Allergy status to narcotic agent; Z94.84 Stem cells transplant status
CPT/HCPCS: 80048; 82962; 85014; 85018; 93005; J0690; J2250; J3010